=== PATIENT | male | born 1960 | race Caucasian/White ===

== ENCOUNTER 2018-02-22 07:49 | Observation (INO) ==
[2018-02-22] MEDS ORDERED: predniSONE 20 MG TABLET PO ONE (08:05)
[2018-02-22] MEDS ORDERED: Ipratropium/Albuterol Neb 3 ML IH ONE (08:05)
[2018-02-22 08:25] LABS: Basophils # 0.1 K/mcL (0.0-0.2); Basophils % 0.9 %; Eosinophils # 0.3 K/mcL (0.0-0.6); Eosinophils % 3.8 %; Hematocrit 41.9 % (37.5-50.1); Hemoglobin 14.1 g/dL (12.9-16.9); Immature Granulocytes % 0.4 % (0-4); Lymphocytes # 2.4 K/mcL (0.6-4.6); Lymphocytes % 30.8 %; Mean Corpuscular HGB Conc 33.7 g/dL (31.6-35.5); Mean Corpuscular Hemoglobin 28.3 pg (28.0-33.3); Mean Platelet Volume 10.1 fL (9.4-12.4); Monocytes # 0.5 K/mcL (0.0-1.3); Monocytes % 6.5 %; Neutrophils # 4.5 K/mcL (1.6-8.9); Platelet Count 186 K/mcL (140-400); Red Blood Count 4.99 M/mcL (4.19-5.50); Red Cell Distribution Width 13.5 % (11.5-14.5); Segmented Neutrophils % 57.6 %
--- NOTE | 2018-02-22 08:35 | Emergency Department Note ---
Disposition Clinical Impression: Chest pain Qualifiers: Chest pain type: precordial pain Qualified Code(s): R07.2 - Precordial pain Pulmonary edema Qualifiers: Chronicity: acute Qualified Code(s): J81.0 - Acute pulmonary edema Disposition: Admitted As Inpatient Condition: Good Referrals: Julia Robin DO [Primary Care Provider] - Forms: ED Satisfaction Letter Time of Disposition: 10:02 General Adult HPI - General Chief complaint: ED Chest Pain Stated complaint: chest pain Time Seen by Provider: 02/22/18 07:55 Source: patient, family Limitations: no limitations - History of Present Illness HPI Narrative: This is a 57-year-old male who comes to emergency department reporting episodes of burning intermittent chest pain that is been present at his epigastrium for the last 2 days about starting about 2 half hours prior to arrival has been radiating up under his sternum. In these last 2 and half hours the pain has never gone away, the way it has been for the last 2 days. Reports a coronary bypass surgery about 2-1/2 years prior to arrival. No nausea or vomiting. His Pain Scale: 5 - Related Data Allergies Allergy/AdvReac Type Severity Reaction Status Date / Time hydrocodone [From Vicodin] Allergy Seizure Verified 02/22/18 07:53 acetaminophen [From Percocet] AdvReac Vomiting Verified 02/22/18 07:53 Oxycodone [From Percocet] AdvReac Vomiting Verified 02/22/18 07:53 tramadol AdvReac Vomiting Verified 02/22/18 07:53 All systems ED: reviewed and negative except as stated. Cardiovascular: Reports: chest pain Past Medical History - Past Medical History Medical history: Reports: diabetes, hypertension, myocardial infarction Surgical history: Reports: coronary bypass (CABG) Psychiatric history: Reports: no psych history - Social History Smoking Status: Current every day smoker Smokeless Tobacco Status: No Alcohol use: Reports: none Drug use: Reports: none Physical Exam - General Limitations: no limitations General appearance: alert, in no apparent distress - Head Head exam: atraumatic, normocephalic, normal inspection - Eye Eye exam: Present: normal appearance, PERRL, EOMI - Chest Chest inspection: Present: normal inspection, symmetric chest wall rise - Respiratory Respiratory exam: Present: wheezes (There are expiratory wheezes at the right upper, middle, and lower lobes, none on the right ). Absent: respiratory distress, accessory muscle use, prolonged expiratory phase - Cardiovascular Cardiovascular exam: Present: regular rate, normal rhythm, normal heart sounds - Abdominal Exam Abdominal exam: Present: soft, Non-Tender. Absent: tenderness, distention, guarding, rebound, rigidity - Extremities Exam Extremities exam: Present: normal inspection, full ROM. Absent: tenderness, pedal edema - Neurological Exam Neurological exam: Present: alert, oriented X3 - Psychiatric Psychiatric exam: Present: normal affect, normal mood - Skin Skin exam: Present: warm, dry, intact, normal color Course Course Narrative: This is a 57-year-old male with epigastric pain radiating up under the sternum, burning in character, concerning for acute coronary syndrome. Exam is more concerning for COPD or for pneumonia. Vital Signs Temperature 97.4 F L 02/22/18 07:52 Pulse Rate 80 02/22/18 07:52 Respiratory Rate 18 02/22/18 07:52 Blood Pressure 171/86 02/22/18 07:52 O2 Sat by Pulse Oximetry 95 02/22/18 07:52 Temperature 97.4 F L 02/22/18 07:57 Pulse Rate 76 02/22/18 08:12 Respiratory Rate 16 02/22/18 08:19 Blood Pressure 140/94 02/22/18 08:12 O2 Sat by Pulse Oximetry 97 02/22/18 08:19 Oxygen Delivery Oxygen Delivery Room Air Medical Decision Making - [facility] Narrative Medical decision making narrative: With the chest x-ray showing some amount of pulmonary edema, nitroglycerin, enalaprilat, and furosemide were given. I discussed his case with the on-call hospitalist, who accepted him for observation. - Lab Data Lab results reviewed: Yes I reviewed the patient's lab results. Lab results narrative: CBC was unremarkable BMP showed slight hyponatremia at 133 and slight decrease in bicarbonate 21 Troponin was low Result diagrams: 02/22/18 08:14 02/22/18 08:14 Lab Results 02/22/18 02/22/18 Range/Units 08:14 08:14 WBC 7.7 (4.3-11.1) K/mcL RBC 4.99 (4.19-5.50) M/mcL Hgb 14.1 (12.9-16.9) g/dL Hct 41.9 (37.5-50.1) % MCV 84.0 (83.0-100.0) fL MCH 28.3 (28.0-33.3) pg MCHC 33.7 (31.6-35.5) g/dL RDW 13.5 (11.5-14.5) % Plt Count 186 (140-400) K/mcL MPV 10.1 (9.4-12.4) fL Immature Gran % 0.4 (0-4) % Seg Neutrophils % 57.6 % Lymphocytes % 30.8 % Monocytes % 6.5 % Eosinophils % 3.8 % Basophils % 0.9 % Neutrophils # 4.5 (1.6-8.9) K/mcL Lymphocytes # 2.4 (0.6-4.6) K/mcL Monocytes # 0.5 (0.0-1.3) K/mcL Eosinophils # 0.3 (0.0-0.6) K/mcL Basophils # 0.1 (0.0-0.2) K/mcL Sodium 133 L (136-145) mEq/L Potassium 4.4 (3.5-5.1) mEq/L Chloride 105 (98-107) mEq/L Carbon Dioxide 21 L (23-29) mEq/L BUN 20 (6-20) mg/dL Creatinine 1.14 (0.70-1.30) mg/dL Est GFR ( Amer) > 60 (> 60) Est GFR (Non-Af Amer) > 60 (> 60) BUN/Creatinine Ratio 18 (6-26) Glucose 293 H (70-105) mg/dL Calculated Osmolality 289 (280-300) Calcium 9.2 (8.6-10.3) mg/dL Troponin I 0.03 (< 0.04) ng/mL - Radiology Data Radiology results reviewed: Yes I reviewed the patient's radiology results. Chest x-ray showed pulmonary vascular congestion - EKG Data EKG #1 EKG attestation: Yes I reviewed and interpreted this EKG. EKG results narrative: ECG showed sinus rhythm, 70 bpm, slightly increased ME interval at 205 ms, normal ST segments, T-wave inversions in V5 and V6 Critical Care Time Critical Care Time: Yes Total Critical Care Time: 15 Attestation: 15 minutes of critical care time was invested independent of other procedures
[2018-02-22 08:48] LABS: BUN/Creatinine Ratio 18 (6-26); Blood Urea Nitrogen 20 mg/dL (6-20); Calcium 9.2 mg/dL (8.6-10.3); Carbon Dioxide 21 mEq/L (23-29); Chloride 105 mEq/L (98-107); Glucose 293 mg/dL (70-105); Osmolality,Calculated 289 (280-300); Potassium 4.4 mEq/L (3.5-5.1); Sodium 133 mEq/L (136-145); Troponin I 0.03 ng/mL (< 0.04); eGFR For Non-African Americans > 60 (> 60)
[2018-02-22] MEDS ORDERED: Furosemide 20 MG/2 ML VIAL IVP ONE (09:31)
[2018-02-22] MEDS ORDERED: Naloxone 0.4 MG/ML INJ IVP PRN (10:01)
[2018-02-22] MEDS: Nitroglycerin 0.4 MG TAB.SUBL SL PRN ×2 (10:08→10:14)
[2018-02-22] MEDS ORDERED: Nitroglycerin 0.4 MG TAB.SUBL SL PRN (10:11)
[2018-02-22] MEDS ORDERED: *HR* Labetalol 20 MG/4 ML SYRINGE IVP ONE (10:11)
[2018-02-22] MEDS ORDERED: Ondansetron 4 MG/2 ML VIAL IVP PRN (10:11)
--- NOTE | 2018-02-22 10:41 | Internal Med History&Physical ---
Date of Encounter: 02/22/18 Time of Encounter: 10:35 Internal Medicine - H&P: HPI History of present illness: Mr. Burnett is a 57 year old male with history of CAD status-post CABG 2 years ago , diabetes, hypertension, COPD, tobacco abuse presented for a 2 day history of chest pain. Described as burning, lasting minutes at a time. Pain radiates to right arm and both shoulders. No recent trauma or over exertion. Symptoms are accompanied with shortness of breath. He also notes cough with sputum production more than usual. He denies fevers/chills, nausea/vomiting, extremity or abdominal edema, numbness/tingling, orthopnea. In the ED an EKG showed T wave inversions in V5 and V6 that were present on EKG one year ago. Initial troponin was negative. Chest x-ray showed cardiomegaly with vascular congestion. He was hypertensive with systolic BP in 170s, and was also noted to be wheezing. He was given vasotec, one dose of IV Lasix 20 mg, Prednisone 60 mg, and Duo Neb therapy and aspirin. Patient stated that chest pain was feeling better after Nitro and that his wheezing improved with breathing therapy. He had a nuclear stress test in 08/02/16 was negative for ischemia or infarct. The excercise test was non-diagnostic due to baseline ST/T wave abnormalities at that time. Past Med Surg Social Fam HX - Past Medical History Medical history: diabetes, hypertension, myocardial infarction Psychiatric history: no psych history - Past Surgical History Surgical History: coronary bypass (CABG) - Social History Smoking Status: Current every day smoker Smokeless Tobacco Status: No Alcohol use: none Drug use: none Internal Medicine - H&P: Meds Aspirin [Aspirin] 81 mg PO DAILY 02/22/18 [History] Atorvastatin Calcium [Lipitor] 80 mg PO HS 02/22/18 [History] Carvedilol [Carvedilol] 18.75 mg PO DAILY 02/22/18 [History] Clopidogrel [Plavix] 75 mg PO DAILY 02/22/18 [History] Insulin ASPART [Novolog Flexpen] 10 unit SQ BID 02/22/18 [History] Insulin Glargine,Hum.rec.anlog [Lantus Solostar] 25 unit SQ 1200 02/22/18 [ History] Isosorbide MONOnitrate [Isosorbide Mononitrate] 20 mg PO DAILY 02/22/18 [History ] Lisinopril [Zestril] 20 mg PO DAILY 02/22/18 [History] Metformin HCl [Glucophage] 1,000 mg PO BID 02/22/18 [History] Pantoprazole Sodium [Protonix] 20 mg PO DAILY 02/22/18 [History] 3 Allergy/AdvReac Type Severity Reaction Status Date / Time hydrocodone [From Vicodin] Allergy Seizure Verified 02/22/18 07:53 acetaminophen [From Percocet] AdvReac Vomiting Verified 02/22/18 07:53 Oxycodone [From Percocet] AdvReac Vomiting Verified 02/22/18 07:53 tramadol AdvReac Vomiting Verified 02/22/18 07:53 All Systems PM: A 10-system review of systems was performed and is negative for pertinent findings except as documented above in the HPI. Review of systems: As per HPI - Constitutional Vitals: Temp Pulse Resp BP Pulse Ox 97.4 F L 73 20 144/88 95 02/22/18 07:57 02/22/18 10:10 02/22/18 10:10 02/22/18 10:10 02/22/18 10:10 General appearance: Present: A&O X 3 Exam: No acute distress - Head Head exam: Present: atraumatic, normocephalic Additional comments: No JVD - Eye Eye exam: Present: PERRL, conjuntiva pink, sclera anicteric Pupils: Present: PERRL - Neck Neck exam general surgery: Present: supple, trachea midline. Absent: lymphadenopathy - Respiratory Respiratory exam: Present: rales (bilateral bases). Absent: accessory muscle use, rhonchi, wheezes - Cardiovascular Cardiovascular exam: Present: RRR, +S1, +S2. Absent: diastolic murmur, gallop, rubs, systolic murmur - GI/Abdominal GI/Abdominal exam: Present: normal bowel sounds, soft, no peritoneal signs. Absent: distended, tenderness - Extremities Exam Extremities exam: Present: warm, radial pulses palpable and symmetrical. Absent : calf tenderness, cyanotic, pedal edema - Neurological Exam Neurological exam: Present: CN II-XII intact, oriented X3, no focal deficits. Absent: pronater drift, facial droop, speech deficit - Skin Skin exam: Present: dry, intact Internal Med - H&P Results - Labs CBC & Chem 7: 02/22/18 08:14 02/22/18 08:14 - Assessment and plan (1) Chest pain Current Visit: Yes Status: Acute Assessment and plan: Patient with multiple comorbidities including CABG 2.5 years ago presents for intermittent chest pain that is worsening for past two days. He felt relief with nitro in ED. EKG showed T wave inversions that were present on EKG one year ago. Initial troponin was negative. Chest x-ray showed vascular congestion and he did have rales on lung auscultation as well, but no extremity edema. Could be due to pulmonary edema, ACS, or other. Lower suspicion for PE. Possible GERD, pneumonia, or musculoskeletal though pain is non-reproduced on exam. He is afebrile and no leukocytosis, monitor without antibiotics. He is currently in no acute distress. - Cycle cardiac enzymes - Echocardiogram, BNP - procalcitonin to rule out bacterial pneumonia. - Lasix for pulm edema, fluid restriction, HOB elevation > 45 degrees - Cardiology will see patient tomorrow once more stable and enzymes cycles. Will make NPO at midnight. Qualifiers: Chest pain type: unspecified Qualified Code(s): R07.9 - Chest pain, unspecified (2) Pulmonary edema Current Visit: Yes Status: Acute Assessment and plan: Start Lasix IV 20 mg BID Monitor I/Os fluid restriction Echocardiogram HOB >45 degrees Qualifiers: Chronicity: acute Qualified Code(s): J81.0 - Acute pulmonary edema (3) Diabetes Current Visit: Yes Status: Acute Assessment and plan: Med recs pending Glucose at 293. Resume home medications once med rec finished Diabetic/cardiac diet Insulin sliding scale Qualifiers: Diabetes mellitus type: type 2 Diabetes mellitus exterminator helper insulin use: with exterminator helper use Diabetes mellitus complication status: with unspecified complications Qualified Code(s): E11.8 - Type 2 diabetes mellitus with unspecified complications; Z79.4 - FDC (current) use of insulin (4) Hypertension Current Visit: Yes Status: Acute Assessment and plan: Resume home meds once med rec done. Also hydralazine IV as prn. Qualifiers: Hypertension type: essential hypertension Qualified Code(s): I10 - Essential (primary) hypertension (5) Hx of CABG Current Visit: Yes Status: Acute Assessment and plan: Resume home medications. (6) COPD (chronic obstructive pulmonary disease) Current Visit: Yes Status: Acute Assessment and plan: Patient had wheezing on exam, this resolved after duo neb therapy. Continue Prednisone 5 day burst and Duo neb therapy. Qualifiers: COPD type: unspecified COPD Qualified Code(s): J44.9 - Chronic obstructive pulmonary disease, unspecified (7) DVT prophylaxis Current Visit: Yes Status: Acute Assessment and plan: Heparin SQ - Time Spent With Patient Total time spent is greater than 50% in coordination of care (as documented) at patient's floor/unit and/or counseling patient:
[2018-02-22] MEDS ORDERED: Aspirin 325 MG TABLET PO ONE (10:42)
[2018-02-22] MEDS: Insulin LISPRO 300 UNITS/3 ML VIAL SQ SCH ×2 (11:55→16:53)
[2018-02-22 15:31] LABS: Albumin 4.5 g/dL (3.5-5.7); Albumin/Globulin Ratio 1.6 (1.1-2.2); Bilirubin,Direct 0.1 mg/dL (0.0-0.2); Bilirubin,Indirect 0.6 mg/dL (0.0-1.2); Bilirubin,Total 0.7 mg/dL (0.3-1.0); Globulin 2.9 g/dL (2.4-3.5); Magnesium 1.7 mg/dL (1.6-2.6); Phosphorous 1.6 mg/dL (2.7-4.5); Total Protein 7.4 g/dL (6.4-8.9)
[2018-02-22] MEDS: Ipratropium/Albuterol Neb 3 ML IH SCH ×2 (15:34→22:27)
[2018-02-22] MEDS ORDERED: *HR* Heparin 5,000 UNIT/ML VIAL IVP ONE (15:43)
[2018-02-22] MEDS ORDERED: *HR* Heparin 5,000 UNIT/ML VIAL IVP PRN ×2 (15:43)
[2018-02-22 15:44] LABS: Thyroid Stimulating Hormone 2.987 mcIU/mL (0.340-5.600)
[2018-02-22] MEDS ORDERED: Heparin 25,000 UNIT/500 ML D5W 25,000 UNIT/500 ML BAG IVC SCH (15:45)
--- NOTE | 2018-02-22 15:46 | Event Note ---
Date of Encounter: 02/22/18 Time of Encounter: 15:45 Notified of troponin elevated from 0.03 on admission to 0.44. Will start heparin drip.
[2018-02-22] MEDS ORDERED: 0.9 % Sodium Chloride 250 ML ONE (16:19)
[2018-02-22 16:35] LABS: Hematocrit 44.2 % (37.5-50.1); Hemoglobin 15.2 g/dL (12.9-16.9); Mean Corpuscular HGB Conc 34.4 g/dL (31.6-35.5); Mean Corpuscular Hemoglobin 28.8 pg (28.0-33.3); Mean Corpuscular Volume 83.9 fL (83.0-100.0); Platelet Count 198 K/mcL (140-400); Red Blood Count 5.27 M/mcL (4.19-5.50); Red Cell Distribution Width 13.2 % (11.5-14.5)
[2018-02-22 16:47] LABS: Heparin anti-factor XA UFH 0.02 IU/mL (0.30-0.70)
[2018-02-22 16:48] LABS: Prothrombin Time 11.5 Seconds (9.4-12.1)
[2018-02-22] MEDS: Furosemide 40 MG/4 ML VIAL IVP SCH (16:55)
--- NOTE | 2018-02-22 17:20 | Event Note ---
Date of Encounter: 02/22/18 Time of Encounter: 17:18 I went to see patient, but he apparently left the floor without notifying anyone. Nursing states they suspect he went outside to smoke. Noted increase in troponin. TTE pending. Continue ACS management for now. Further recommendations to be made after evaluating patient.
[2018-02-22] MEDS ORDERED: *HR* Heparin 5,000 UNIT/ML VIAL SQ SCH (18:00)
[2018-02-22] MEDS ORDERED: Insulin DETEMIR 100 UNIT/ML X5UNITS SQ SCH ×2 (21:00)
[2018-02-22] MEDS ORDERED: Furosemide 40 MG/4 ML VIAL IVP SCH (21:00)
[2018-02-22] MEDS ORDERED: Insulin LISPRO 300 UNITS/3 ML VIAL SQ SCH (21:00)
[2018-02-23] MEDS: Ipratropium/Albuterol Neb 3 ML IH SCH ×2 (03:42→10:58)
[2018-02-23 04:52] LABS: Basophils % 0.3 %; Eosinophils # 0.1 K/mcL (0.0-0.6); Eosinophils % 0.6 %; Hematocrit 42.9 % (37.5-50.1); Hemoglobin 14.6 g/dL (12.9-16.9); Immature Granulocytes % 0.4 % (0-4); Lymphocytes % 24.2 %; Mean Corpuscular Hemoglobin 28.5 pg (28.0-33.3); Mean Corpuscular Volume 83.6 fL (83.0-100.0); Mean Platelet Volume 10.4 fL (9.4-12.4); Monocytes # 0.8 K/mcL (0.0-1.3); Monocytes % 6.9 %; Platelet Count 187 K/mcL (140-400); Red Blood Count 5.13 M/mcL (4.19-5.50); Red Cell Distribution Width 13.2 % (11.5-14.5); Segmented Neutrophils % 67.6 %
[2018-02-23 04:55] LABS: Neutrophils # 8.3 K/mcL (1.6-8.9)
[2018-02-23 05:18] LABS: BUN/Creatinine Ratio 19 (6-26); Blood Urea Nitrogen 20 mg/dL (6-20); Calcium 9.3 mg/dL (8.6-10.3); Carbon Dioxide 25 mEq/L (23-29); Chloride 103 mEq/L (98-107); Cholesterol 111 mg/dL (< 200); Glucose 212 mg/dL (70-105); HDL Cholesterol 28 mg/dL (40-59); LDL Cholesterol,Calculated 53 mg/dL (0-99); Osmolality,Calculated 289 (280-300); Potassium 3.8 mEq/L (3.5-5.1); Sodium 135 mEq/L (136-145); Triglycerides 149 mg/dL (< 150); eGFR For Non-African Americans > 60 (> 60)
[2018-02-23] MEDS ORDERED: ISOSORBIDE MONONITRATE 20 MG PO SCH (09:00)
[2018-02-23] MEDS ORDERED: Lisinopril 20 MG TABLET PO SCH (09:00)
[2018-02-23] MEDS ORDERED: Aspirin 81 MG TAB.CHEW PO SCH (09:00)
[2018-02-23] MEDS ORDERED: predniSONE 20 MG TABLET PO SCH (09:00)
--- NOTE | 2018-02-23 09:13 | Cardiology Consult Note ---
Date of Encounter: 02/23/18 Time of Encounter: 08:40 Assessment and Plan (1) NSTEMI (non-ST elevated myocardial infarction) Current Visit: Yes Status: Acute Troponin 0.03, 0.44, 0.91. Typical chest pain symptoms. ECG unchanged from previous. Rates chest discomfort 1/10 upon exam. Continue heparin gtt, asa, statin, BB, and plavix. TTE pending. Recommend LHC with possible PCI; alternatives, risks, and benefits discussed, he is agreeable to proceed. Cardiac rehab consult. Risk factor modification discussed including heavy emphasis on the importance of smoking cessation. Further recommendations to follow. (2) Hx of CABG Current Visit: Yes Status: Acute Hx of CABG in 2014. Plan as stated above. Continue asa, statin, BB, plavix. (3) Hypertension Current Visit: Yes Status: Chronic Continue home CV medications. Qualifiers: Hypertension type: essential hypertension Qualified Code(s): I10 - Essential (primary) hypertension Discussion w patient/family: The assessment and plan as outlined above was discussed with the patient and/or family members who expressed understanding and agreement. All questions were answered. Thank you for involving us in the care of your patient. Please call with any questions. The patient will be discussed and reviewed with Dr. Hayden; changes to be made accordingly. History of Present Illness Consult date: 02/23/18 Requesting physician: Demarcus Figueroa Consult reason: Chest pain Chief complaint: Chest pain History of present illness: Mr. Burnett is a 57 year old male with PMHx significant of CAD s/p PCI, s/p CABG, hepatitis C, DMII, HTN, HLD, and tobacco dependency who presented to the ED with complaints of chest discomfort. Symptoms started 3 days ago and have worsened each day; reports midsternal chest tightness/pressure with radiation across shoulders and down right arm; improves with SL NTG tablets, worsens with exertion. Reports symptoms similar to prior CA. Upon arrival to ED, initial troponin was negative. ECG unchanged from prior. Prior CV testing: Nuclear stress : hypertensive BP response to exercise, non- diagnostic ECG d/t baseline ST-T wave abnormality, gated EF=60%, perfusion imaging negative for ischemia or infarct CABG 08/30/14: CABG x5 ([facility], sequential SVG to the first diagonal then to the OM2, SVG Y vein graft to OM1, SVG to PDA) TTE 07/26/14: LVEF 50%, mild LVDD, no significant valvular dysfunction Past Med Surg Social Fam HX - Past Medical History Attestation: Yes The following information was validated with the patient. Source: patient Medical history: COPD, coronary artery disease, diabetes, hyperlipidemia, hypertension, myocardial infarction Psychiatric history: no psych history - Past Surgical History Surgical History: angioplasty/stent, coronary bypass (CABG) - Social History Smoking Status: Current every day smoker Packs per day: 1 Smokeless Tobacco Status: No Alcohol use: none Drug use: none Medications and Allergies Aspirin [Aspirin] 81 mg PO DAILY 02/22/18 [History] Atorvastatin Calcium [Lipitor] 80 mg PO HS 02/22/18 [History] Carvedilol [Carvedilol] 18.75 mg PO DAILY 02/22/18 [History] Clopidogrel [Plavix] 75 mg PO DAILY 02/22/18 [History] Insulin ASPART [Novolog Flexpen] 10 unit SQ BID 02/22/18 [History] Insulin Glargine,Hum.rec.anlog [Lantus Solostar] 25 unit SQ 1200 02/22/18 [ History] Isosorbide MONOnitrate [Isosorbide Mononitrate] 20 mg PO DAILY 02/22/18 [History ] Lisinopril [Zestril] 20 mg PO DAILY 02/22/18 [History] Metformin HCl [Glucophage] 1,000 mg PO BID 02/22/18 [History] Pantoprazole Sodium [Protonix] 20 mg PO DAILY 02/22/18 [History] 3 Allergy/AdvReac Type Severity Reaction Status Date / Time hydrocodone [From Vicodin] Allergy Seizure Verified 02/22/18 07:53 acetaminophen [From Percocet] AdvReac Vomiting Verified 02/22/18 07:53 Oxycodone [From Percocet] AdvReac Vomiting Verified 02/22/18 07:53 tramadol AdvReac Vomiting Verified 02/22/18 07:53 All Systems Review: The remainder of the systems were reviewed and are negative - Cardiovascular Cardiovascular: as per HPI Physical Examination Vital Signs, Last 4 Hours Temp Pulse Resp BP Pulse Ox 02/23/18 08:03 97.9 F 68 14 162/99 96 General: Conversant, No Apparent Distress HEENT: Atraumatic, Normocephaly, Mucus Membranes Moist Neck: No JVD, Normal carotid pulses Cardiac: Reg Rate and Rhythm, Normal S1 and S2, No Murmur Lungs: Normal Breath Sounds, No Wheeze, Rales, Rhonchi Neuro: Alert and responsive, No focal deficits noted Abdomen: Soft, Non-Tender Skin: No rashes noted on visualized skin Musculoskeletal: No Chest Wall Tenderness Extremities: No Clubbing, No Cyanosis, No Edema, Normal Pulses Results 02/23/18 04:16 02/23/18 04:16 Lab Results 02/22/18 02/22/18 02/22/18 14:28 14:28 14:28 WBC Hgb Hct Plt Count INR Sodium Potassium Chloride Carbon Dioxide BUN Creatinine Glucose Calcium Magnesium 1.7 Total Bilirubin 0.7 AST 18 ALT 15 Alkaline Phosphatase 98 Troponin I 0.44 H* B-Natriuretic Peptide 25 TSH 2.987 02/22/18 02/22/18 02/22/18 16:22 16:22 20:32 WBC 7.8 Hgb 15.2 Hct 44.2 Plt Count 198 INR 1.0 Sodium Potassium Chloride Carbon Dioxide BUN Creatinine Glucose Calcium Magnesium Total Bilirubin AST ALT Alkaline Phosphatase Troponin I 0.91 H* B-Natriuretic Peptide TSH 02/23/18 02/23/18 04:16 04:16 WBC 12.2 H D Hgb 14.6 Hct 42.9 Plt Count 187 INR Sodium 135 L Potassium 3.8 Chloride 103 Carbon Dioxide 25 BUN 20 Creatinine 1.07 Glucose 212 H Calcium 9.3 Magnesium Total Bilirubin AST ALT Alkaline Phosphatase Troponin I B-Natriuretic Peptide TSH Active Medications Albuterol/Ipratropium (Duoneb) 3 ml IH [id number] GUERRERO Stop: 08/24/18 16:01 Last Admin: 02/23/18 03:42 Dose: 3 ml Aspirin (Aspirin) 81 mg PO DAILY GUERRERO Stop: 08/25/18 09:01 Atorvastatin Calcium (Lipitor) 80 mg PO HS GUERRERO Stop: 08/24/18 21:01 Last Admin: 02/22/18 20:08 Dose: 80 mg Carvedilol (Coreg) 18.75 mg PO DAILY GU[facility]ERO Stop: 08/25/18 09:01 Clopidogrel Bisulfate (Plavix) 75 mg PO DAILY GU[facility]ERO Stop: 08/25/18 09:01 Furosemide (Lasix) 20 mg IVP BIDDIURETIC GUERRERO Stop: 08/24/18 17:01 Last Admin: 02/22/18 16:55 Dose: 20 mg Heparin Sodium (Porcine) (Heparin) 4,000 unit IVP Q6HR PRN PRN Reason: SEE COMMENTS Stop: 08/24/18 15:44 Heparin Sodium (Porcine) (Heparin) 2,000 unit IVP Q6H PRN PRN Reason: SEE COMMENTS Stop: 08/24/18 15:44 Last Admin: 02/23/18 06:27 Dose: 2,000 unit Hydralazine HCl (Hydralazine) 10 mg IVP Q6HR PRN PRN Reason: SEE COMMENTS Stop: 08/24/18 10:12 Heparin Sodium/Dextrose (Heparin 25,000 Unit/500 Ml D5w) 25,000 unit in 500 mls @ 19.999 mls/hr IVC .Q24H GUERRERO; 9.193 UNIT/KG/HR PRN Reason: Protocol Stop: 08/24/18 15:46 Last Titration: 02/23/18 06:28 Dose: 11.21 unit/kg/hr, 24.4 mls/hr Insulin Detemir (Levemir) 15 unit SQ HS GUERRERO Stop: 08/24/18 21:01 Last Admin: 02/22/18 20:09 Dose: 15 unit Insulin Human Lispro (Humalog) 0 units SQ HS GUERRERO PRN Reason: Protocol Stop: 08/24/18 21:01 Last Admin: 02/22/18 21:10 Dose: 5 units Insulin Human Lispro (Humalog) 0 units SQ TIDWM GUERRERO PRN Reason: Protocol Stop: 08/24/18 12:01 Last Admin: 02/22/18 16:53 Dose: 10 units Lisinopril (Zestril) 20 mg PO DAILY GUERRERO PRN Reason: Protocol Stop: 08/25/18 09:01 Naloxone HCl (Narcan) 0.4 mg IVP Q2MIN PRN PRN Reason: SEE COMMENTS Stop: 08/24/18 10:02 Nicotine (Nicoderm) 21 mg TD DAILY GUERRERO PRN Reason: Protocol Stop: 08/25/18 09:16 Nitroglycerin (Nitroglycerin) 0.4 mg SL Q5MIN PRN PRN Reason: Dyspnea Stop: 08/24/18 09:31 Last Admin: 02/22/18 10:14 Dose: 0.4 mg Nitroglycerin (Nitroglycerin) 0.4 mg SL Q5MIN PRN PRN Reason: Chest Pain Stop: 08/24/18 10:12 Omeprazole (Prilosec) 20 mg PO DAILY [facility] Stop: 08/25/18 09:01 Ondansetron HCl (Zofran) 4 mg IVP Q8HR PRN; Protocol PRN Reason: Nausea And Vomiting Stop: 08/24/18 10:12 Pharmacy Profile Note (Patient Taking Own Medication) 1 each PO DAILY [facility] Stop: 08/25/18 09:01 Prednisone (Prednisone) 40 mg PO DAILY [facility] Stop: 02/27/18 09:01 - Imaging and Cardiology Stress Test: report reviewed Echo: report reviewed Cardiac cath: pending, report reviewed Other Results: 12 hour tele: avg HR=64 SR. No events noted. - EKG Interpretation EKG results cardiology: personally reviewed Consult Discharge Plan - Plan Referrals: Julia Robin DO [Primary Care Provider] -
[2018-02-23] MEDS ORDERED: Nicotine 21 MG PATCH.TD24 TD SCH (09:15)
[2018-02-23] MEDS: Furosemide 40 MG/4 ML VIAL IVP SCH (09:56)
[2018-02-23] MEDS ORDERED: 0.9 % Sodium Chloride 1,000 ML ONE ×3 (09:56→11:08)
[2018-02-23] MEDS ORDERED: Heparin 1,000 UNITS/500 mL 500 ML ONE (09:56)
[2018-02-23] MEDS ORDERED: Nitroglycerin 1,000 MCG/10 ML VIAL IV ONE (09:57)
[2018-02-23] MEDS: Insulin LISPRO 300 UNITS/3 ML VIAL SQ SCH ×3 (09:57→16:23)
[2018-02-23] MEDS ORDERED: ISOVUE-370 200 ML INFUS..BTL IV ONE ×2 (09:57→11:13)
[2018-02-23] MEDS ORDERED: *HR* Heparin 10,000 UNIT/10 ML VIAL ONE (09:57)
[2018-02-23] MEDS ORDERED: *HR* Bivalirudin 250 MG VIAL IVC ONE (10:18)
[2018-02-23] MEDS ORDERED: *HR* Midazolam HCl 2 MG/2 ML VIAL ONE (10:54)
--- NOTE | 2018-02-23 11:00 | Pre-Sedation Evaluation ---
Pre-sedation evaluation - Pre-sedation checklist Date of procedure: 02/23/18 Procedure: heart cath Recent Vitals: Last Vital Signs Temp 97.9 F 02/23/18 08:03 Pulse 68 02/23/18 08:03 Resp 14 02/23/18 08:03 BP 162/99 02/23/18 08:03 Pulse Ox 96 02/23/18 08:03 H&P (including ROS) documented in medical record: Yes Previous reaction to sedatives/anesthetics: No Dietary Status: NPO after Midnight Airway Assessment: Patient can open mouth completely, TMJ function normal Dentition: dentures removed Possible difficult airway: No ASA Classification *see protocol: CLASS III-Severe systemic disease Cardiac Registry (Cardio Only) - Functional Capacity Functional Capacity: >=4 METS with symptoms - Clincal Frailty Scale Clinical Frailty Scale: Managing Well
[2018-02-23] MEDS ORDERED: Ipratropium/Albuterol Neb 3 ML IH PRN (11:06)
[2018-02-23] MEDS ORDERED: 0.9 % Sodium Chloride 1,000 ML IVC SCH (11:45)
--- NOTE | 2018-02-23 11:49 | Internal Med Progress Note ---
Hospitalist Progress Note - Encounter Date of Encounter: 02/23/18 Time of Encounter: 09:00 - Subjective Interval History: Patient is in no acute distress. Still complaining of mild lower substernal pain, no shortness of breath. Cardiology saw patient and plan for [facility] today. - Exam Vitals: Temp Pulse Resp BP Pulse Ox 97.9 F 68 14 162/99 96 02/23/18 08:03 02/23/18 08:03 02/23/18 08:03 02/23/18 08:03 02/23/18 08:03 Exam: No acute distress, AAO 3 HEENT: NC/AT, PERRL Neck: Supple Lungs: CTA B/L Heart: S1S2, RRR, no chest wall tenderness Abd: Soft, NT Ext: No pedal edema Neuro: No focal deficit. - Assessment and Plan (1) Chest pain Current Visit: Yes Status: Acute Assessment and Plan: Typical chest pain will elevated troponin. Hx of CAD s/p CABG, consider NSTEMI - Cardio consult appreciated - Plan for [facility] today - Further management will follow cardio recommendation. (2) Pulmonary edema Current Visit: Yes Status: Acute Assessment and Plan: Start Lasix IV 20 mg BID Monitor I/Os fluid restriction Echocardiogram HOB >45 degrees (3) Diabetes Current Visit: Yes Status: Acute Assessment and Plan: Cont Insulin sliding scale at this point, pt use lantus 25 units daily, will add basal insulin. (4) Hypertension Current Visit: Yes Status: Chronic Assessment and Plan: Cont home meds (5) Hx of CABG Current Visit: Yes Status: Acute Assessment and Plan: Resume home medications. (6) COPD (chronic obstructive pulmonary disease) Current Visit: Yes Status: Acute Assessment and Plan: Patient had no wheezing now. Continue Prednisone 5 day burst and Duo neb therapy. (7) DVT prophylaxis Current Visit: Yes Status: Acute Assessment and Plan: Heparin drip now - Time Spent with Patient Total time spent is greater than 50% in coordination of care (as documented) at patient's floor/unit and/or counseling patient: 30 minutes 25 - 35 minutes Internal Medicine: Result - Labs CBC & Chem 7: 02/23/18 04:16 02/23/18 04:16 Labs: Short CBC 02/22/18 02/23/18 Range/Units 16:22 04:16 WBC 7.8 12.2 H D (4.3-11.1) K/mcL Hgb 15.2 14.6 (12.9-16.9) g/dL Hct 44.2 42.9 (37.5-50.1) % Plt Count 198 187 (140-400) K/mcL Neutrophils # 8.3 (1.6-8.9) K/mcL BMP 02/23/18 04:16 Sodium 135 L Potassium 3.8 Chloride 103 Carbon Dioxide 25 BUN 20 Creatinine 1.07 Glucose 212 H Calcium 9.3 Cardiac Enzymes 02/22/18 02/22/18 Range/Units 14:28 20:32 Troponin I 0.44 H* 0.91 H* (< 0.04) ng/mL Liver Function 02/22/18 Range/Units 14:28 Total Bilirubin 0.7 (0.3-1.0) mg/dL Direct Bilirubin 0.1 (0.0-0.2) mg/dL AST 18 (13-39) Units/L ALT 15 (7-52) Units/L Alkaline Phosphatase 98 (34-104) Units/L Albumin 4.5 (3.5-5.7) g/dL - ABG Interpretation ABG results: PT/INR, D-dimer PT 11.5 Seconds (9.4-12.1) 02/22/18 16:22 Consult Discharge Plan - Plan Referrals: Julia Robin DO [Primary Care Provider] - (Your appointment has been requested. Our office will call you with an appointment. If you do not hear from us, please call and schedule an appointment with your primary care physician within 7-10 days. Thank You ) (1) Chest pain Qualifiers: Chest pain type: unspecified Qualified Code(s): R07.9 - Chest pain, unspecified (2) Pulmonary edema Qualifiers: Chronicity: acute Qualified Code(s): J81.0 - Acute pulmonary edema (3) Diabetes Qualifiers: Diabetes mellitus type: type 2 Diabetes mellitus senior care insulin use: with terminal superintendent use Diabetes mellitus complication status: with unspecified complications Qualified Code(s): E11.8 - Type 2 diabetes mellitus with unspecified complications; Z79.4 - prison (current) use of insulin (4) Hypertension Qualifiers: Hypertension type: essential hypertension Qualified Code(s): I10 - Essential (primary) hypertension (6) COPD (chronic obstructive pulmonary disease) Qualifiers: COPD type: unspecified COPD Qualified Code(s): J44.9 - Chronic obstructive pulmonary disease, unspecified
[2018-02-23 11:55] LABS: Estimated Average Glucose 217 mg/dl; Hemoglobin A1C 9.2 %
--- NOTE | 2018-02-23 12:01 | Invasive Diagnostic Lab Proc ---
Name: Alfred Burnett Date of Study: 02/23/2018 Date: 1960 Ht: 72.0in Medical Record#: [id number] Age: 57 Wt: 240.30lb Gender: Male BSA: 2.3 Order #: [id number] BMI: 32.55 Physicians Procedure Physician: Sky Devlin DO Referring MD: Referring MD: Staff Name Position Time In Lashonda Weber RT Monitor 10:58 AM Kiarra Grey RT (R) Scrub 10:58 AM Lopez Shea RN Review Coordinator 10:58 AM Indications Indication Non-Stemi Procedures Performed Procedure L HRT ART/GRFT ANGIO Pre-Procedure Checklist Informed consent is complete signed and on chart. H&P is on chart. ID band is on and ID verified with patient. Patient NPO for procedure The procedure was described for the patient and questions were answered. Blood Pressure: 178/98 ECG is on chart. Rhythm: NSR Plan of Care Patient will tolerate the procedure without complications. Adequate level of comfort will be maintained. Hemodynamics will remain stable Patient will recover from procedure without complications. Respiratory function will be maintained. Cardiac rhythm will remain stable. Patient temperature will be maintained. Patient and/or family have verbalized understanding of the procedure. Patient Education Chief Complaint/Reason for Test: Cardiac Cath Developmental Category: Geriatric (65+ years) Developmentally Appropriate for Age: Yes Learning Barriers: None Education Needs: Procedure Education Method: Verbal Information Taught: Cardiac Cath Educational Evaluation: Able to repeat information Intravenous Access Time IV Size Location DC'd Fluid/Drip Rate Units RN 18g 1 /" Patent On Arrival Rt Antecubital 0.9NaCl 25 ml/hr Lopez Shea RN Allergies hydrocodone Oxycodone acetaminophen tramadol Vital Signs Time BP (mmHg) HR (bpm) O2 Sat. RR (bpm) LOC 10:59 AM / % 5 = Fully awake and oriented or at pre-proc level 10:59 AM / % 4 = Oriented but drowsy 11:29 AM / % 4 = Oriented but drowsy 11:09 AM 142 / 92 72 97 % 35 11:14 AM 142 / 88 72 96 % 19 11:19 AM 153 / 97 69 96 % 21 11:24 AM 151 / 87 73 95 % 30 11:29 AM 148 / 94 71 95 % 25 11:34 AM 150 / 96 72 98 % 22 11:39 AM 150 / 91 68 95 % 29 11:44 AM 138 / 90 71 96 % 18 11:49 AM 143 / 88 68 95 % 41 10:59 AM 178 / 98 66 98 % 27 11:04 AM 155 / 96 72 96 % 23 Procedural Medications Time Medication Dose Units Method Given By 10:59 AM Oxygen 2 L/min nasal cannula Lopez Shea RN 10:59 AM Versed 2 mg Intravenous Lopez Shea RN 11:09 AM Lidocaine 2% 10 ml Subcutaneous Sky Devlin DO ASA Classification: CLASS III- Severe systemic disease (i.e. prior AMI, diabetes with vascular complications, morbid obesity) Anabel Score Preprocedure Postprocedure Activity 2- Moves 4 extremities sustained head lift Activity 2- Moves 4 extremities sustained head lift Circulation 2- SBP +/= 20 points of pre-anesthetic level Circulation 2- SBP +/= 20 points of pre-anesthetic level Consciousness 2- Awake and alert oriented x 3 Consciousness 2- Awake and alert oriented x 3 O2 Saturation 2- Able to maintain O2 satruation of 92% on room air O2 Saturation 2- Able to maintain O2 satruation of 92% on room air Respiratory 2- Able to deep breathe and cough well Respiratory 2- Able to deep breathe and cough well Total Score 10 Total Score 10 Contrast Agent: Isovue Diagnostic Contrast: 100 ml Total Contrast: 100 ml Fluoro Dose: 9211 mGy Activated Clotting Time Time Seconds to Clot 11:26 AM 138 Procedure Log Time Note Enter By 10:48 AM CathStat 10:58 AM Vitals capture started with the following parameters, Patient=Adult, Interval=5 min, Initial Gytooifz=898 mmHg, Deflation Rate=5 mmHg, Cuff placed on Right Arm 10:58 AM Pt arrived to phlebotomist medical lab assistant 2 at 10:58 [email or web address] 10:58 AM Lashonda Weber RT Position: Monitor Time in: 10:58 [email or web address] 10:58 AM Kiarra Grey RT (R) Position: Scrub Time in: 10:58 [email or web address] 10:58 AM Lopez Shea RN Position: Review Coordinator Time in: 10:58 [email or web address] 10:58 AM Patient charges- Angio tray pack, Navilyst 3mm J, Pulse Oximetry and ACIST tubing and transducer [email or web address] 10:58 AM Case Delayed No [email or web address] 10:58 AM Hair removed from procedure site in procedure lab using clippers. Bilateral groin prepped with Chloraprep by Kiarra Grey (R), then patient was draped. Skin intact. kk 10:58 AM Physician arrived 10:58 kkner 10:59 AM Meet and greet completed kk:59 AM Sign in performed according to hospital policy. kk 10:59 AM Procedure start :59 :59 AM Time: :59 Oxygen on at 2 L/min per nasal cannula by Lopez Shea RN :59 AM Time: :59 Versed 2 mg Intravenous Given by Lopez Shea RN kk:59 AM Time: 10:59 Patient comfortable and pain free: Yes :59 AM Time: :59LOC: 5 = Fully awake and oriented or at pre-proc level kk 10:59 AM Clinical Presentation: Non-STEMI kk 10:59 AM HR=66 bpm, DQUA=959/98 mmhg, SpO2=98 %, Resp=27 B/min 11:04 AM HR=72 bpm, OWNE=343/96 mmhg, SpO2=96 %, Resp=23 B/min 11:04 AM ASA Class CLASS III- Severe systemic disease (i.e. prior AMI, diabetes with vascular complications, morbid obesity) [email or web address] 11:09 AM HR=72 bpm, GCOL=060/92 mmhg, SpO2=97 %, Resp=35 B/min 11:09 AM Time out performed according to hospital policy 11:10 AM Time: 11:09 10 ml Lidocaine 2% to right groin Subcutaneous Given by Sky Devlin DO kk 11:12 AM Micro-Introducer Kit utilized for sheath placement [email or web address] 11:14 AM HR=72 bpm, WEFB=170/88 mmhg, SpO2=96.0 %, Resp=19 B/min 11:14 AM Time: 10:59 Patient comfortable and pain free: Yes kk 11:14 AM Time: 10:59LOC: 4 = Oriented but drowsy [email or web address] 11:14 AM Access obtained by percutaneous puncture. 6Fr 10cm Terumo [place] sheath placed in right Femoral artery. [id number] kkner 11:15 AM Pressure channel 2 zeroed. 11:15 AM 5Fr FR 4 catheter inserted over the wire DN [email or web address] 11:15 AM Catheter selectively placed in left ventricle kkallner 11:15 AM wire removed kkallner 11:15 AM Bolus angiogram of left Ventricle complete: hand injected kkallner 11:16 AM Recorded Pressure: LV, HR=87, Condition=Condition 1 (Left Ventricle) LV 106/-9/5 11:16 AM Recorded Pressure: LV, Ao, HR=69, Condition=Condition 1 (Left Ventricle) LV 146/-7/4, (Aorta) Ao 144/72/102 11:16 AM Recorded Pressure: Ao, HR=70, Condition=Condition 1 (Aorta) Ao 146/78/105 11:16 AM catheter repositioned into RCA kkallner 11:17 AM RCA angiography performed in multiple views. [email or web address] 11:17 AM Recorded Pressure: Ao, HR=71, Condition=Condition 1 (Aorta) Ao 140/75/101 11:18 AM SVG to the 1st Diagonal angio performed in multiple views. [email or web address] 11:18 AM Recorded Pressure: Ao, HR=73, Condition=Condition 1 (Aorta) Ao 143/75/103 11:18 AM SVG to the RPDA angio performed in multiple views. [email or web address] 11:18 AM Recorded Pressure: Ao, HR=73, Condition=Condition 1 (Aorta) Ao 150/79/108 11:19 AM HR=69 bpm, LHDA=363/97 mmhg, SpO2=96.0 %, Resp=21 B/min 11:19 AM Recorded Pressure: Ao, HR=71, Condition=Condition 1 (Aorta) Ao 140/69/98 11:20 AM Left NANO to the LAD angio performed in multiple views. kkall 11:21 AM Catheter removed kk 11:21 AM 5Fr FL 4 catheter inserted over the wire DNC [email or web address] 11:21 AM Recorded Pressure: Ao, HR=72, Condition=Condition 1 (Aorta) Ao 145/76/104 11:23 AM Bolus angiogram of right Femoral complete: hand injection kkall 11:24 AM HR=73 bpm, ZJOW=384/87 mmhg, SpO2=95.0 %, Resp=30 B/min 11:24 AM Catheter removed kkallner 11:25 AM ACT drawn kkner 11:26 AM Coronary Dominance: right [email or web address] 11:26 AM At 11:26 the ACT was 138 seconds. [email or web address] 11:26 AM Procedure completed at 11:26 02/23/2018 [email or web address] 11:26 AM Did you address ARMAND flow and Dominance? Yes [email or web address] 11:26 AM Sign out completed: Radiation Dose 744.60 mGy, 9210.51 cGy/cm2 Fluoro Time: 2.5 Isovue 370 - 200ml contrast 100 ml given by Sky Devlin DO. Complications: NoneCardiac Rehab Consult needed: NoConfirmed administered medications: Yes kkner 11:27 AM Isovue 370 - 200ml,1 Bottle(s) used. [email or web address] 11:27 AM Arterial sheath pulled using manual compression and V+ Pad for 20 minutes by Kiarra Grey RT (R) [email or web address] 11:27 AM Estimated Blood Loss: minimal kkallner 11:27 AM Post ECG NSR kkallner 11:27 AM Post Blood Pressure 151/87 kkallner 11:27 AM 11:27 Post Pulses Bilateral DP 2+ kkallner 11:27 AM Information taught Cardiac Cath kkallner 11:27 AM Education needs Procedure, Plan of Care, and Responsibilities of Patient in Care [email or web address] 11:28 AM Learning barriers :None kkner 11:28 AM Education Methods Verbal kkallner 11:28 AM Education evaluation Able to repeat information kkallner 11:28 AM Plavix, Effient or Brilinta given No kkallner 11:28 AM Delay to floor No kkallner 11:28 AM Family placed in consult room. [email or web address] 11:28 AM 11:28 Post Pulses Bilateral PT 2+ kkallner 11:28 AM Complications: None kkner 11:29 AM HR=71 bpm, XYEE=381/94 mmhg, SpO2=95.0 %, Resp=25 B/min 11:29 AM Time: 11:14 Patient comfortable and pain free: Yes kkallner 11:30 AM Lesion found in Mid LAD. Pre Stenosis: 99 Pre ARMAND Flow: [email or web address] 11:30 AM Lesion found in 1st Diagonal. Pre Stenosis: 99 Pre ARMAND Flow: [email or web address] 11:30 AM Lesion found in Proximal Circumflex. Pre Stenosis: 90 Pre ARMAND Flow: [email or web address] 11:30 AM Lesion found in 1st Marginal. Pre Stenosis: 90 Pre ARMAND Flow: [email or web address] 11:31 AM Lesion found in 2nd Marginal. Pre Stenosis: 100 Pre ARMAND Flow: kkallner 11:31 AM Lesion found in Right PDA. Pre Stenosis: 99 Pre ARMAND Flow: kkallner 11:31 AM Lesion found in Proximal RCA. Pre Stenosis: 50 Pre ARMAND Flow: kkallner 11:31 AM Left Main Coronary Artery with 0% stenosis kkallner 11:32 AM Proximal Left Anterior Descending Coronary Artery with 0% stenosis. If graft is supplying this territory, 0 % stenosis. [email or web address] 11:32 AM Mid/Distal Left Anterior Descending Coronary Artery and diagonal branches with 99% stenosis. If graft is supplying this area, 0 % stenosis kkallner 11:32 AM Circumflex, Obtuse Marginal, Left Posterior Descending, and Left Posterolateral Coronary Arteries with 100 % stenosis. If graft is supplying this area, 0 % stenosis kkallner 11:32 AM Right Coronary, Right Posterior Descending Arteries with Right Posterolateral and Acute Marginal branches with 99 % stenosis. If graft is supplying this area, 0 % stenosis kk 11:32 AM Ramus with 0% stenosis. If graft is supplying this area, 0 % stenosis kk 11:34 AM HR=72 bpm, NCLA=419/96 mmhg, SpO2=98.0 %, Resp=22 B/min 11:39 AM HR=68 bpm, EPTE=213/91 mmhg, SpO2=95.0 %, Resp=29 B/min 11:44 AM HR=71 bpm, LUUA=253/90 mmhg, SpO2=96.0 %, Resp=18 B/min 11:44 AM Time: 11:29 Patient comfortable and pain free: Yes 11:44 AM Time: 11:29LOC: 4 = Oriented but drowsy 11:49 AM HR=68 bpm, NGVG=917/88 mmhg, SpO2=95.0 %, Resp=41 B/min 11:51 AM Report given to Bri MACIAS Pt taken to 3B Room #46. 11:[facility] Complications Complication None None Hemodynamics Pressures Site Systolic/A Wave Diastolic/V Wave Mean LV 106 -9 5 LV 146 -7 4 AO 144 72 102 AO 146 78 105 AO 140 75 101 AO 143 75 103 AO 150 79 108 AO 140 69 98 AO 145 76 104 Post Procedure Information Blood Pressure: 151/87 mmHg Rhythm: NSR Post procedural instructions were given Pulses Time Site Pre-Procedure Post-Procedure Note Bilateral DP 2+ Bilateral radial 2+ 11:27:00 AM Bilateral DP 2+ 11:28:00 AM Bilateral PT 2+ Updated by RT Ivis (R) on 02/23/2018 11:53:01 AM electronically signed on 02/23/2018 11:53:22 AM with status of Final
[2018-02-23] MEDS ORDERED: Isosorbide MONOnitrate (24 HR) 30 MG TAB.ER.24H PO SCH (12:15)
[2018-02-23] MEDS ORDERED: *HR* Heparin 5,000 UNIT/ML VIAL SQ SCH (14:00)
--- NOTE | 2018-02-23 18:38 | Discharge Summary ---
- NOTES TO OUTPATIENT PROVIDER Notes to Outpatient Provider: Add imdur 30 mg po daily per cardio Orders not resulted at time of discharge: Pending orders 02/24/18 04:00 BMP [Basic Metabolic Panel] AM 0400 Complete Blood Count [HEME] AM 0400 Date of Encounter: 02/23/18 Time of Encounter: 18:20 - Discharge Diagnosis (1) Chest pain Priority: Primary Status: Acute Qualifiers: Chest pain type: unspecified Qualified Code(s): R07.9 - Chest pain, unspecified (2) Pulmonary edema Priority: Secondary Status: Acute Qualifiers: Chronicity: acute Qualified Code(s): J81.0 - Acute pulmonary edema (3) Diabetes Priority: Secondary Status: Acute Qualifiers: Diabetes mellitus type: type 2 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 operator use Diabetes mellitus complication status: with unspecified complications Qualified Code(s): E11.8 - Type 2 diabetes mellitus with unspecified complications; Z79.4 - [facility] (current) use of insulin (4) Hypertension Priority: Secondary Status: Chronic Qualifiers: Hypertension type: essential hypertension Qualified Code(s): I10 - Essential (primary) hypertension (5) Hx of CABG Priority: Secondary Status: Acute (6) COPD (chronic obstructive pulmonary disease) Priority: Secondary Status: Acute Qualifiers: COPD type: unspecified COPD Qualified Code(s): J44.9 - Chronic obstructive pulmonary disease, unspecified (7) DVT prophylaxis Priority: Secondary Status: Acute Hospital course: Mr. Burnett is a 57 year old male presented to ER for chest pain. Past medical history is significant for diabetes, hypertension, tobacco abuse, COPD, CAD S/P CABG. Patient was admitted to rule out ACS. He was placed on continuous cardiac monitoring. 3 sets of troponin was checked. Troponin was elevated. Consider NSTEMI. Patient was placed on heparin drip and cardiology was consult. Patient had LHC, which shows multiple vessel stenosis, cannot place stents, cardiology recommended aggressive medical management and risk factor modification. Discussed with cardiology consult, will discharge patient to home today. Medication was adjusted per cardio recommendation. I saw and examined the patient at bedside after LHC. Patient is awake, alert, oriented 3. Patient denies further chest pain or shortness of breath. Denies abdominal pain, catheter site on right groin area is well dressed, no bleeding, no tenderness. Per cardiology, patient should avoid heavy lifting. He Will follow-up with cardiology as outpatient. Patient is stable to discharge home. Smoking cessation education has been done, patient will give nicotine patch prescription. Discharge discussed with: patient, family Time spent discussing smoking cessation with patient: more than 10 minutes - Time Spent with Patient Total time spent providing and/or coordinating discharge services: 40 minutes Greater than 30 minutes - Discharge Medications Prescriptions: Nitroglycerin 0.4 mg SL Q5MIN PRN #20 tab.subl PRN Reason: Chest Pain Isosorbide MONOnitrate (24 HR) [Imdur] 30 mg PO DAILY 30 Days #30 tab.er.24h Nicotine Patch [Nicoderm] 21 mg TD DAILY 14 Days #14 patch.td24 Home Medications: Aspirin 81 mg PO DAILY 02/22/18 [History] Atorvastatin Calcium [Lipitor] 80 mg PO HS 02/22/18 [History] Carvedilol 18.75 mg PO DAILY 02/22/18 [History] Clopidogrel [Plavix] 75 mg PO DAILY 02/22/18 [History] Insulin ASPART [Novolog Flexpen] 10 unit SQ BID 02/22/18 [History] Insulin Glargine,Hum.rec.anlog [Lantus Solostar] 25 unit SQ 1200 02/22/18 [ History] Lisinopril [Zestril] 20 mg PO DAILY 02/22/18 [History] Metformin HCl [Glucophage] 1,000 mg PO BID 02/22/18 [History] Pantoprazole Sodium [Protonix] 20 mg PO DAILY 02/22/18 [History] Isosorbide MONOnitrate (24 HR) [Imdur] 30 mg PO DAILY 30 Days #30 tab.er.24h 08/11 [Rx] Nicotine Patch [Nicoderm] 21 mg TD DAILY 14 Days #14 patch.td24 02/23/18 [Rx] Nitroglycerin 0.4 mg SL Q5MIN PRN #20 tab.subl 02/23/18 [Rx] Allergies/Adverse Reactions: 3 Allergy/AdvReac Type Severity Reaction Status Date / Time hydrocodone [From Vicodin] Allergy Seizure Verified 02/22/18 07:53 acetaminophen [From Percocet] AdvReac Vomiting Verified 02/22/18 07:53 Oxycodone [From Percocet] AdvReac Vomiting Verified 02/22/18 07:53 tramadol AdvReac Vomiting Verified 02/22/18 07:53 Date of admission: 02/22/18 10:18 Primary care physician: Dorian Robles Consults: 02/22/18 11:00 Consult to Cardiology [CONS] Routine Comment: Consulting Provider: [facility] [place] Reason for Consult: chest pain Call Completed: Yes Discharging clinician: Dom Cee Anticipated date of discharge: 02/23/18 - Constitutional Vitals: Temp Pulse Resp BP Pulse Ox 97.9 F 68 14 162/99 96 02/23/18 08:03 02/23/18 08:03 02/23/18 08:03 02/23/18 08:03 02/23/18 08:03 General appearance: Present: A&O X 3, no acute distress, answers questions appropriately Exam: No acute distress, AAO 3 HEENT: NC/AT, PERRL Neck: Supple Lungs: CTA B/L Heart: S1S2, RRR, no chest wall tenderness Abd: Soft, NT Ext: No pedal edema Neuro: No focal deficit. - Head Head exam: Present: atraumatic, normocephalic - Eye Eye exam: Present: PERRL, conjuntiva pink, sclera anicteric Pupils: Present: PERRL - Neck Neck exam general surgery: Present: supple, trachea midline. Absent: lymphadenopathy - Respiratory Respiratory exam: Present: CTAB. Absent: accessory muscle use, rales, rhonchi, wheezes - Cardiovascular Cardiovascular exam: Present: RRR, +S1, +S2. Absent: diastolic murmur, gallop, rubs, systolic murmur - GI/Abdominal GI/Abdominal exam: Present: normal bowel sounds, soft, no peritoneal signs. Absent: distended, tenderness - Extremities Exam Extremities exam: Present: warm, radial pulses palpable and symmetrical. Absent : calf tenderness, cyanotic, pedal edema - Neurological Exam Neurological exam: Present: CN II-XII intact, oriented X3, no focal deficits. Absent: pronater drift, facial droop, speech deficit - Skin Skin exam: Present: dry, intact - Patient Status Disposition: Home, Self-Care Condition: Good Functional capacity at discharge: independent ambulation Overall status at discharge: patient is back to baseline - Discharge Instructions Follow Up With: Julia Robin, DO [Primary Care Provider] - (Your appointment has been requested. Our office will call you with an appointment. If you do not hear from us, please call and schedule an appointment with your primary care physician within 7-10 days. Thank You ) - Diet and Activity Activity: as per the cardiac rehab, other (Avoid heavy lifting) Diet: advance to your usual diet, diabetic diet, low fat, low cholesterol, low salt diet
[2018-02-23 19:15] VITALS: BP 120/75
--- NOTE | 2018-02-25 21:29 | Electrocardiograph Report ---
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
== END 2018-02-23 19:10 | disposition home or self-care (01) ==
LOC: EMEROOARM 07:49 → 3BNU 07:49
PROVIDERS: ADMIT Student in an Organized Health Care Education/Training Program; ATTEND Student in an Organized Health Care Education/Training Program